=== PATIENT | male | born 2000 | race Native Hawaiian/Other Pacific Islander ===

== ENCOUNTER 2021-07-14 12:48 | Emergency (ER) | payer OTHER ==
[~2021-07-14] VITALS: Ht 172.7 cm; Wt 65.9 kg
[~2021-07-14 12:48] MED LIST: CLARITIN10 M1 PO; CLONIDINE0.2 MG PO; CONCERTA36 MG PO
[2021-07-14 13:01] VITALS: BP 119/71; TEMP 98.9
== END 2021-07-14 13:26 | disposition home or self-care (01) ==
LOC: ED 12:48
DX: L08.89 Other specified local infections of the skin and subcutaneous tissue (principal); T17.1XXA Foreign body in nostril, initial encounter; W45.8XXA Other foreign body or object entering through skin, initial encounter; Y92.89 Other specified places as the place of occurrence of the external cause; F17.210 Nicotine dependence, cigarettes, uncomplicated
CPT/HCPCS: 99282